=== PATIENT | female | born 1985 | race African-American/Black ===

== ENCOUNTER 2021-03-05 13:06 | Emergency (ER) | payer BC, MEDICAID ==
[2021-03-05] MEDS ORDERED: Lidocaine 1% 20 ML MDV ONE (13:30)
[2021-03-05] MEDS ORDERED: Cephalexin 500 MG CAP ONE (13:48)
== END 2021-03-05 14:10 | disposition home or self-care (01) ==
LOC: MADERS 13:06
DX: T18.0XXA Foreign body in mouth, initial encounter (principal); L03.211 Cellulitis of face; F17.290 Nicotine dependence, other tobacco product, uncomplicated; Z79.899 Other long term (current) drug therapy
CPT/HCPCS: 64400

== ENCOUNTER 2021-03-31 09:37 | Emergency (ER) | payer MEDICAID ==
[2021-03-31 10:29] LABS: Bilirubin Negative (Negative); Blood, Urine Trace (Negative); Clarity Clear (Clear); Glucose, Urine (Dipstick) Negative (Negative); Ketone, Urine Negative (Negative); Leukocyte Negative (Negative); Nitrite Negative (Negative); Protein, Urine (Dipstick) Negative (Neg-Trace); Urobilinogen 0.2 mg/dL (Less than 2); pH, Urine 5.5 (5.0-9.0)
[2021-03-31] MEDS ORDERED: metroNIDAZOLE 250 MG TAB ONE (10:30)
[2021-03-31] MEDS ORDERED: Lidocaine 1% 20 ML MDV ONE (10:30)
[2021-03-31] MEDS ORDERED: Doxycycline 100 MG CAP ONE (10:30)
[2021-03-31] MEDS ORDERED: cefTRIAXone\\ROCEPHIN 500 MG VIAL ONE (10:30)
[2021-03-31 10:33] LABS: Pregnancy Test - Urine (BHCG) Negative (Negative); Pregu Control Background? CLEAR/WHITE (CLR/WHITE); Pregu Control Bar Appear? YES (CONTROL BAR); Specific Gravity 1.028 (1.002-1.036)
[2021-03-31 10:34] LABS: Specific Gravity, Urine 1.028 (1.002-1.036)
[2021-03-31 10:37] LABS: RBC/HPF 0-3 HPF (0-3); WBC/HPF 0-3 HPF (0-3)
[2021-03-31 10:38] LABS: Bacteria/HPF Rare-Few HPF (None Seen)
== END 2021-03-31 11:00 | disposition home or self-care (01) ==
LOC: MADERS 09:37
DX: N72 Inflammatory disease of cervix uteri (principal); A59.01 Trichomonal vulvovaginitis; F17.220 Nicotine dependence, chewing tobacco, uncomplicated; Z79.899 Other long term (current) drug therapy
CPT/HCPCS: 81003; 81015; 81025; 87480; 87510; 87660; 96372; 99284; J0696